=== PATIENT | female | born 1980 | race Caucasian/White ===

== ENCOUNTER 2019-01-24 04:30 | Inpatient (IN) | payer OTHER ==
[2019-01-24] VITALS (68 sets, daily range): BP systolic 74–126; BP diastolic 42–82
[~2019-01-24] VITALS: Ht 157.5 cm; Wt 82.1 kg
--- NOTE | 2019-01-24 04:43 | NUR ---
JOEY PARADA presented to unit via from ED, accompanied by SO, for INDUCTION. JOEY PARADA weighed, gowned, voided, and to bed. EFHM and TOCO applied, VS taken. JOEY PARADA oriented to bed controls, call light, TV, heat, and A/C controls.
[2019-01-24] MEDS ORDERED: OXYTOCIN/NORMAL SALINE 500 ML IV ONE (04:44)
[2019-01-24] MEDS ORDERED: D5 LR IV SOLUTION 1,000 ML IV ONE (04:44)
[2019-01-24] MEDS ORDERED: AMPICILLIN FOR IV USE 2,000 MG in WATER (STERILE) FOR INJECTION 14.8 ML IV SCH (04:53)
[2019-01-24] MEDS ORDERED: MINERAL OIL CONCENTRATE 99.9% 15 ML UDC TOP PRN (05:00)
[2019-01-24] MEDS: D5 LR IV SOLUTION 1,000 ML IV SCH ×2 (05:10→13:35)
[2019-01-24] MEDS: OXYTOCIN/NORMAL SALINE 500 ML IV SCH ×2 (05:15→15:53)
[2019-01-24] MEDS ORDERED: SUFENTA 0.6MCG/ML BUPIVA 0.125 100 ML ONE (05:22)
[2019-01-24 05:28] LABS: BASOPHILS % (AUTO) 0 % (0-10); EOSINOPHILS # (AUTO) 0.1 10^3/uL (0.0-0.3); EOSINOPHILS % (AUTO) 1 % (0-10); HEMATOCRIT 39 % (35-52); HEMOGLOBIN 12.6 G/DL (11.5-16.0); LYMPHOCYTES # (AUTO) 1.3 X 10^3 (1.0-4.0); LYMPHOCYTES % (AUTO) 13 % (12-44); MEAN CORPUSCULAR HEMOGLOBIN 28 PG (25-34); MEAN CORPUSCULAR HGB CONC 33 G/DL (32-36); MEAN CORPUSCULAR VOLUME 87 FL (80-99); MEAN PLATELET VOLUME 10.7 FL (7.4-10.4); MONOCYTES # (AUTO) 0.8 X 10^3 (0.0-1.0); MONOCYTES % (AUTO) 8 % (0-12); NEUTROPHILS # (AUTO) 7.7 X 10^3 (1.8-7.8); NEUTROPHILS % (AUTO) 78 % (42-75); PLATELET COUNT 188 10^3/uL (130-400); RED CELL DISTRIBUTION WIDTH 14.6 % (10.0-14.5); WHITE BLOOD COUNT 9.9 10^3/uL (4.3-11.0)
--- NOTE | 2019-01-24 05:34 | NUR ---
Anesthesia called and informed that pt of Dr. Pedroza's was here and in need of an epidural. Informed of current labs and that fluids are running. States that he will head in shortly.
[2019-01-24 05:42] LABS: BILIRUBIN,URINE NEGATIVE (NEGATIVE); CLARITY,URINE CLEAR; COLOR,URINE YELLOW; GLUCOSE, URINE (UA) NEGATIVE (NEGATIVE); KETONES,URINE NEGATIVE (NEGATIVE); LEUKOCYTE ESTERASE ,URINE NEGATIVE (NEGATIVE); NITRITE,URINE NEGATIVE (NEGATIVE); PH,URINE 7 (5-9); PROTEIN,URINE NEGATIVE (NEGATIVE); UROBILINOGEN,URINE NORMAL (NORMAL)
[2019-01-24] MEDS ORDERED: fentaNYL INJECTION 100 MCG/2 ML AMP ONE (05:48)
[2019-01-24] MEDS ORDERED: BUPIVACAINE 0.25% 30 ML (SENSORCAINE) VIAL ONE (05:48)
[2019-01-24 06:00] LABS: BACTERIA,URINE NEGATIVE /HPF
[2019-01-24] MEDS ORDERED: CATHETER FLUSH 10 ML SYR IV SCH ×2 (06:00→22:00)
[2019-01-24] MEDS ORDERED: LACTATED RINGERS 1,000 ML IV ONE ×2 (06:33→07:00)
[2019-01-24] MEDS ORDERED: EPIDURAL (SUFENTA 0.6MCG/ML BUPIVA 0.125%) 100 ML BAG EPI SCH (06:45)
[2019-01-24] MEDS ORDERED: NALOXONE 0.4 MG/ML 1 ML (NARCAN) VIAL IV PRN (06:45)
[2019-01-24] MEDS ORDERED: CATHETER FLUSH 10 ML SYR IV PRN (06:45)
--- NOTE | 2019-01-24 07:35 | History & Physical-OB/GYN ---
History of Present Illness History of Present Illness Reason for visit/HPI Pitocin Induction of Labor at 39+ weeks Date of Admission January 24, 2019 at 04:36 Date Seen by a Provider: January 24, 2019 Time Seen by a Provider: 07:05 I consulted on this patient on 01/24/19 07:30 Attending Physician Kenny Teixeira DO Admitting Physician Kenny Teixeira DO Consult Allergies and Home Medications Allergies Coded Allergies: No Known Drug Allergies (Unverified , 01/24/19) Patient Home Medication List Home Medication List Reviewed: Yes Past Ipfiqbt-Fvjcgb-Csiuvz Hx Patient Social History Marrital Status: Alcohol Use: Denies Use Recreational Drug Use: No Physical Abuse Screen: No Sexual Abuse: No Recent Foreign Travel: No Contact w/other who traveled: No Recent Hopitalizations: No Immunizations Up To Date Pediatric: Yes Seasonal Allergies Seasonal Allergies: No Surgeries No Respiratory No Cardiovascular No Neurological No Reproductive System Expected Date of Delivery: January 30, 2019 Last Menstrual Period: Apr 25, 2018 Genitourinary No Gastrointestinal No Musculoskeletal No Endocrine History of Endocrine Disorders: No HEENT History of HEENT Disorders: No Cancer No Psychosocial History of Psychiatric Problem: No Integumentary History of Skin or Integumenta: No Blood Transfusions History of Blood Disorders: No Adverse Reaction to a Blood Tr: No Family Medical History Family Hx: Cardiovascular disease 19 FATHER, Onset:50's - 60 Review of Systems Constitutional: see HPI Physical Exam Physical Exam Vital Signs Vital Signs Date Time Temp Pulse Resp B/P (MAP) Pulse Ox O2 Delivery O2 Flow Rate FiO2 01/24/19 06:54 77 20 90/61 (71) 100 Room Air 01/24/19 06:51 85 20 85/58 (67) 100 Room Air 01/24/19 06:48 75 20 87/59 (68) Room Air 01/24/19 06:45 80 20 81/52 (62) 100 Room Air 01/24/19 06:42 77 20 91/62 (72) 100 Room Air 01/24/19 06:39 78 20 94/62 (73) 100 Room Air 01/24/19 06:36 81 20 91/60 (70) 100 Room Air 01/24/19 06:33 76 20 89/57 (68) Room Air 01/24/19 06:30 79 20 93/60 (71) 99 Room Air 01/24/19 06:26 78 20 90/59 (69) Room Air 01/24/19 06:23 80 20 88/59 (69) 99 Room Air 01/24/19 06:20 74 20 92/62 (72) 100 Room Air 01/24/19 06:18 76 20 96/65 (75) Room Air 01/24/19 06:15 77 20 95/66 (76) 98 Room Air 01/24/19 06:12 71 20 89/53 (65) Room Air 01/24/19 06:09 68 20 74/42 (53) 100 Room Air 01/24/19 06:06 77 20 89/55 (66) 99 Room Air 01/24/19 06:03 79 20 119/76 (90) 99 Room Air 01/24/19 06:00 89 20 122/78 (93) 100 Room Air 01/24/19 05:30 71 100 Room Air 01/24/19 04:48 98.7 80 20 120/82 (95) Capillary Refill : Labs Laboratory Tests 01/24/19 05:10: White Blood Count 9.9, Red Blood Count 4.43, Hemoglobin 12.6, Hematocrit 39, Mean Corpuscular Volume 87, Mean Corpuscular Hemoglobin 28, Mean Corpuscular Hemoglobin Concent 33, Red Cell Distribution Width 14.6H, Platelet Count 188, Mean Platelet Volume 10.7H, Neutrophils (%) (Auto) 78H, Lymphocytes (%) (Auto) 13, Monocytes (%) (Auto) 8, Eosinophils (%) (Auto) 1, Basophils (%) (Auto) 0, Neutrophils # (Auto) 7.7, Lymphocytes # (Auto) 1.3, Monocytes # (Auto) 0.8, Eosinophils # (Auto) 0.1, Basophils # (Auto) 0.0 01/24/19 05:14: Urine Color YELLOW, Urine Clarity CLEAR, Urine pH 7, Urine Specific [place] 1.005L, Urine Protein NEGATIVE, Urine Glucose (UA) NEGATIVE, Urine Ketones NEGATIVE, Urine Nitrite NEGATIVE, Urine Bilirubin NEGATIVE, Urine Urobilinogen NORMAL, Urine Leukocyte Esterase NEGATIVE, Urine RBC (Auto) NEGATIVE, Urine RBC NONE, Urine WBC NONE, Urine Squamous Epithelial Cells NONE, Urine Crystals NONE , Urine Bacteria NEGATIVE, Urine Casts NONE, Urine Mucus NEGATIVE, Urine Culture Indicated NO General Appearance: No Apparent Distress, WD/WN Respiratory: Chest Non Tender, Lungs Clear, Normal Breath Sounds Cardiovascular: Regular Rate, Rhythm Abdominal: normal bowel sounds, non tender Labia: WNL Vagina: WNL Cervix: WNL Cervix OS: open (1.5 cm/60%/-3 Vertex/Intact) Uterus: Enlarged Extremity: Normal Range of Motion, No Calf Tenderness Assessment/Plan Assessment and Plan Assessment: Intrauterine at 39 weeks Plan: Pitocin Induction of Labor. Artificial Rupture of Membranes. Epidural Anesthesia. I expect a vaginal delivery. Admission Diagnosis Admission Status: Inpatient Order (span 2 midnights) Reason for Inpatient Admission: Pitocin Induction of Labor Clinical Quality Measures DVT/VTE Risk/Contraindication: Risk Factor Score Per Nursin RFS Level Per Nursing on Admit: 2=Moderate KENNY TEIXEIRA DO January 24, 2019 07:35
[2019-01-24] MEDS ORDERED: morphine INJ 10 MG/ML 1ML (SYR OR VIAL) IVP ONE (10:00)
[2019-01-24] MEDS ORDERED: MEPERIDINE (DEMEROL) INJ 50 MG/ML IVP ONE (10:00)
[2019-01-24] MEDS ORDERED: ONDANSETRON 4 MG/2 ML (SDV) Z0FRAN IVP PRN (10:00)
[2019-01-24] MEDS ORDERED: fentaNYL INJECTION 100 MCG/2 ML AMP IVP ONE (10:00)
--- NOTE | 2019-01-24 10:31 | NUR ---
called. update given on pitocin and previous SVE. will check cervix, then update
--- NOTE | 2019-01-24 10:38 | NUR ---
VAMSHI update to
[2019-01-24] MEDS ORDERED: AMPICILLIN FOR IV USE 1,000 MG/VIAL ONE (10:47)
[2019-01-24] MEDS ORDERED: WATER (STERILE) FOR INJECTION 10 ML ONE (10:47)
--- NOTE | 2019-01-24 12:02 | NUR ---
was called with SVE update.
--- NOTE | 2019-01-24 15:40 | OB Labor & Delivery Record ---
Vag Delivery Note Vag Delivery Note Date of Delivery: 01/24/19 Preoperative Diagnosis: Michelle Claire is a (39 /Para / ,Gestational Age (wks)39] Postoperative Diagnosis: Same Surgeon: ALLEGRA HODGSON [facility] [employer] Department Chair: [None] Anesthesia: [Epidural] Delivery Type: [Normal Spontaneous Vaginal Delivery] Findings: [] Viable [male] infant, apgars [], weight [] Lacerations: None Intact placenta with 3 vessel cord. No nuchal cord, body cord or shoulder dystocia Cytotec 800 mcg placed for hemorrhage prophylaxis Estimated Blood Loss: [300] ml Complications: Nuchal cord x 1, manually reduced Condition: Stable Description of Procedure: The patient is a 39 year old female who presented [for Pitocin Induction of Labor]. She was admitted and informed consent was obtained. Her labor course was remarkable. She progressed to complete dilatation and began to push. She was then set up for delivery. The infant's head was delivered atraumatically in the [VENKATESH] position. The shoulders and remainder of the infant' s body were then delivered without difficulty. Upon delivery, the head was held below the level of the perineum and the mouth and nares were bulb suctioned. The cord was doubly clamped and cut and the was handed off to the pediatric staff. An intact placenta with 3-vessel cord delivered via Raúl and there was found to be minimal bleeding.~ Vigorous fundal massage was performed and the fundus was found to be firm. IV oxytocin was given. Examination of the vagina and perineum revealed no laceration.. The sponge, instrument and needle counts were correct. Mom and baby were both in stable condition in the labor suite. Vitals - Labs Vital Signs - I&O Vital Signs Date Time Temp Pulse Resp B/P (MAP) Pulse Ox O2 Delivery O2 Flow Rate FiO2 01/24/19 14:15 75 18 114/69 (84) 100 Room Air 01/24/19 14:00 76 18 113/66 (82) 100 Room Air 01/24/19 13:45 78 18 122/71 (88) 100 Room Air 01/24/19 13:30 82 18 98/59 (72) 100 Room Air 01/24/19 13:15 78 18 108/61 (77) 99 Room Air 01/24/19 13:00 73 18 101/67 (78) 100 Room Air 01/24/19 12:45 74 18 116/70 (85) 100 Room Air 01/24/19 12:30 75 18 110/65 (80) 100 Room Air 01/24/19 12:15 79 18 100 Room Air 01/24/19 12:00 74 18 112/56 (74) 98 Room Air 01/24/19 11:45 72 18 97/58 (71) 100 Room Air 01/24/19 11:30 67 18 98/57 (71) 100 Room Air 01/24/19 11:15 71 18 101/62 (75) 100 Room Air 01/24/19 11:00 68 18 96/58 (71) 100 Room Air 01/24/19 10:45 71 18 103/56 (72) 100 Room Air 01/24/19 10:35 96.5 01/24/19 10:30 65 18 90/55 (67) 100 Room Air 01/24/19 10:15 65 18 90/55 (67) 100 Room Air 01/24/19 10:00 68 18 88/57 (67) 100 Room Air 01/24/19 09:45 68 18 89/54 (66) 100 Room Air 01/24/19 09:30 80 18 84/60 (68) 99 Room Air 01/24/19 09:15 70 18 91/64 (73) 100 Room Air 01/24/19 09:00 77 18 87/59 (68) 99 Room Air 01/24/19 08:45 85 18 96/55 (69) 99 Room Air 01/24/19 08:30 78 18 94/57 (69) 98 Room Air 01/24/19 08:15 69 18 99/57 (71) 98 Room Air 01/24/19 08:00 69 18 99/57 (71) 98 Room Air 01/24/19 07:45 75 18 99/61 (74) 100 Room Air 01/24/19 07:30 97.4 77 18 99/64 (76) 99 Room Air 01/24/19 07:25 75 18 97/61 (73) 100 Room Air 01/24/19 07:20 76 18 95/60 (72) 100 Room Air 01/24/19 07:15 76 18 99/64 (76) 100 Room Air 01/24/19 07:10 96 18 96/55 (69) 100 Room Air 01/24/19 07:05 82 18 103/59 (74) 99 Room Air 01/24/19 07:02 79 18 91/63 (72) Room Air 01/24/19 06:54 77 20 90/61 (71) 100 Room Air 01/24/19 06:51 85 20 85/58 (67) 100 Room Air 01/24/19 06:48 75 20 87/59 (68) Room Air 01/24/19 06:45 80 20 81/52 (62) 100 Room Air 01/24/19 06:42 77 20 91/62 (72) 100 Room Air 01/24/19 06:39 78 20 94/62 (73) 100 Room Air 01/24/19 06:36 81 20 91/60 (70) 100 Room Air 01/24/19 06:33 76 20 89/57 (68) Room Air 01/24/19 06:30 79 20 93/60 (71) 99 Room Air 01/24/19 06:26 78 20 90/59 (69) Room Air 01/24/19 06:23 80 20 88/59 (69) 99 Room Air 01/24/19 06:20 74 20 92/62 (72) 100 Room Air 01/24/19 06:18 76 20 96/65 (75) Room Air 01/24/19 06:15 77 20 95/66 (76) 98 Room Air 01/24/19 06:12 71 20 89/53 (65) Room Air 01/24/19 06:09 68 20 74/42 (53) 100 Room Air 01/24/19 06:06 77 20 89/55 (66) 99 Room Air 01/24/19 06:03 79 20 119/76 (90) 99 Room Air 01/24/19 06:00 89 20 122/78 (93) 100 Room Air 01/24/19 05:30 71 100 Room Air 01/24/19 04:48 98.7 80 20 120/82 (95) Labs Laboratory Tests 01/24/19 05:10: White Blood Count 9.9, Red Blood Count 4.43, Hemoglobin 12.6, Hematocrit 39, Mean Corpuscular Volume 87, Mean Corpuscular Hemoglobin 28, Mean Corpuscular Hemoglobin Concent 33, Red Cell Distribution Width 14.6H, Platelet Count 188, Mean Platelet Volume 10.7H, Neutrophils (%) (Auto) 78H, Lymphocytes (%) (Auto) 13, Monocytes (%) (Auto) 8, Eosinophils (%) (Auto) 1, Basophils (%) (Auto) 0, Neutrophils # (Auto) 7.7, Lymphocytes # (Auto) 1.3, Monocytes # (Auto) 0.8, Eosinophils # (Auto) 0.1, Basophils # (Auto) 0.0 01/24/19 05:14: Urine Color YELLOW, Urine Clarity CLEAR, Urine pH 7, Urine Specific [place] 1.005L, Urine Protein NEGATIVE, Urine Glucose (UA) NEGATIVE, Urine Ketones NEGATIVE, Urine Nitrite NEGATIVE, Urine Bilirubin NEGATIVE, Urine Urobilinogen NORMAL, Urine Leukocyte Esterase NEGATIVE, Urine RBC (Auto) NEGATIVE, Urine RBC NONE, Urine WBC NONE, Urine Squamous Epithelial Cells NONE, Urine Crystals NONE , Urine Bacteria NEGATIVE, Urine Casts NONE, Urine Mucus NEGATIVE, Urine Culture Indicated NO SEALSALLEGRA DO January 24, 2019 15:40
[2019-01-24] MEDS ORDERED: WITCH HAZEL(TUCKS) 40 EA JAR TOP PRN (15:45)
[2019-01-24] MEDS ORDERED: TETANUS,DIPTH,PERTUSS P/F (BOOSTRIX) 0.5 ML VIAL IM ONE (15:45)
[2019-01-24] MEDS ORDERED: BENZOCAINE/MENTHOL (DERMOPLAST) 56 ML CAN TP PRN (15:45)
[2019-01-24] MEDS ORDERED: MEASLES,MUMPS,RUBELLA 1 EA INJ SQ ONE (15:45)
[2019-01-24] MEDS: IBUPROFEN 800 MG (MOTRIN) TAB PO SCH (16:46)
--- NOTE | 2019-01-24 18:47 | NUR ---
eating regular diet. mother and @ side. no c/o's voiced.
--- NOTE | 2019-01-24 19:15 | NUR ---
Report given to next shift.
--- NOTE | 2019-01-24 19:38 | NUR ---
FFu/1. lt rubra noted. no clots expressed. andrew-care offered. v-pad in place. pt transferred to room 312 via w/c with this RN @ side. pt familiarized with room. call lights within reach.
[2019-01-24] MEDS: DOCUSATE SODIUM 100 MG (COLACE) CAP PO SCH ×2 (23:00→23:01)
[2019-01-25] MEDS: IBUPROFEN 800 MG (MOTRIN) TAB PO SCH ×2 (01:46→09:21)
[2019-01-25 04:45] VITALS: BP 85/59
--- NOTE | 2019-01-25 06:13 | Discharge Summary ---
Diagnosis/Chief Complaint Date of Admission January 24, 2019 at 04:36 Date of Discharge January 25, 2019 Discharge Date: January 25, 2019 Discharge Time: 06:15 Admission Diagnosis Admission Diagnosis Intrauterine at 39 weeks Discharge Diagnosis Intrauterine at 39 weeks Reason Hospital Visit Pitocin Induction of Labor at 39+ weeks Discharge Summary Hospital Course Was the Problem List Reviewed?: Yes Hospital Course Ms. Claire was admitted for Pitocin Induction. She received an Epidural for antepartum pain management. I artificially ruptured her membranes. She progressed to complete, then, delivered a healthy viable male after a short course of pushing. No complications. The remainder of her hospitalization was unremarkable. Her vital signs remained stable. She will be discharged to home with instructions, prescriptions and a follow up appointment. Labs Laboratory Tests 01/24/19 05:10: Red Cell Distribution Width 14.6H, Mean Platelet Volume 10.7H, Neutrophils (%) ( Auto) 78H 01/24/19 05:14: Urine Specific [place] 1.005L Procedures None. Discharge Physical Examination Allergies: Coded Allergies: No Known Drug Allergies (Unverified , 01/24/19) Vitals & I&Os Vital Signs Date Time Temp Pulse Resp B/P (MAP) Pulse Ox O2 Delivery O2 Flow Rate FiO2 01/25/19 04:45 96.6 64 18 85/59 (68) 97 Room Air Discharge Home Medications Reviewed and agree with Discharge Medication list on patient's Discharge Instruction sheet Instructions to Patient/Family Please see electronic discharge instructions given to patient. Clinical Quality Measures DVT/VTE Risk/Contraindication: Risk Factor Score Per Nursin RFS Level Per Nursing on Admit: 2=Moderate ALLEGRA HODGSON DO January 25, 2019 06:13
[2019-01-25] MEDS ORDERED: IBUP-1780 PO (06:17)
[2019-01-25] MEDS ORDERED: DOCU100C37 PO (06:17)
[2019-01-25] MEDS ORDERED: OXC5T PO (06:17)
[2019-01-25 06:57] LABS: BASOPHILS % (AUTO) 0 % (0-10); EOSINOPHILS # (AUTO) 0.1 10^3/uL (0.0-0.3); EOSINOPHILS % (AUTO) 1 % (0-10); HEMATOCRIT 37 % (35-52); HEMOGLOBIN 12.1 G/DL (11.5-16.0); LYMPHOCYTES # (AUTO) 1.3 X 10^3 (1.0-4.0); LYMPHOCYTES % (AUTO) 10 % (12-44); MEAN CORPUSCULAR HEMOGLOBIN 29 PG (25-34); MEAN CORPUSCULAR HGB CONC 33 G/DL (32-36); MEAN CORPUSCULAR VOLUME 88 FL (80-99); MONOCYTES # (AUTO) 1.1 X 10^3 (0.0-1.0); MONOCYTES % (AUTO) 8 % (0-12); NEUTROPHILS # (AUTO) 11.4 X 10^3 (1.8-7.8); NEUTROPHILS % (AUTO) 82 % (42-75); PLATELET COUNT 183 10^3/uL (130-400); RED CELL DISTRIBUTION WIDTH 14.3 % (10.0-14.5); WHITE BLOOD COUNT 13.9 10^3/uL (4.3-11.0)
--- NOTE | 2019-01-25 07:04 | Anesthesia-Regional Post-Op ---
Regional Patient Condition Mental Status: Alert, Oriented x3 Circulation: Same as Pre-Op Headache: Absent Sensation: Full Recovery Motor Block: Absent Post Op Complications Complications None Follow Up Care/Instructions Patient Instructions None needed. Anesthesia/Patient Condition Patient is doing well, no complaints, stable vital signs, no apparent adverse anesthesia problems. No complications reported per nursing. [place] [facility] [place] GAUDENCIO Lobo CRNA January 25, 2019 07:04
[2019-01-25] MEDS: DOCUSATE SODIUM 100 MG (COLACE) CAP PO SCH (09:21)
--- NOTE | 2019-01-25 09:21 | NUR ---
scheduled Motrin and Colace given, see eMar for further. infant currently breast feeding. parents pleased with 's efforts.
[2019-01-25 09:55] VITALS: BP 102/67
--- NOTE | 2019-01-25 09:55 | NUR ---
initial shift assessment completed, see interventions for further. POC reviewed r/t boarder mom status.
--- NOTE | 2019-01-25 10:00 | NUR ---
up to shower. assisting.
--- NOTE | 2019-01-25 10:03 | NUR ---
Rx's given to pt's .
[2019-01-25 14:09] VITALS: BP 117/63
--- NOTE | 2019-01-25 14:20 | NUR ---
dismissal instructions given, verbalizes understanding. reviewed follow up appointment and Rx's. rooming in parent info given. signature page signed, placed on chart. Addendum: 01/25/19 at 1425 by JENNIFER VILLEGAS RN dismissed to rooming in parent until infant dismissed from hospital.
== END 2019-01-25 14:20 | disposition home or self-care (01) | DRG 807 ==
LOC: LDRP 04:36
PROVIDERS: ADMIT Obstetrics & Gynecology; ATTEND Obstetrics & Gynecology
PROC: 10E0XZZ Delivery of Products of Conception, External Approach (ICD-10-PCS; principal; 2019-01-24)
PROC: 3E033VJ Introduction of Other Hormone into Peripheral Vein, Percutaneous Approach (ICD-10-PCS; 2019-01-24)
DX: O69.81X0 Labor and delivery complicated by cord around neck, without compression, not applicable or unspecified (principal); Z3A.39 39 weeks gestation of pregnancy; Z37.0 Single live birth
CPT/HCPCS: 36415; 81000; 85025; 86850; 86900; 86901

== ENCOUNTER → 2019-09-13 | Outpatient (CLI) | payer SELFPAY ==
[~2019-09-13] MED LIST: DOCU100C37 PO; IBUP-1780 PO; OXC5T PO
--- NOTE | 2019-09-13 13:40 | Diagnostic Imaging Report ---
INDICATION: Right hip and SI joint pain. TIME OF EXAM: 1:26 PM Oblique views of the sacroiliac joints as well as AP views were obtained. No sacroiliitis is identified. There are no osseous erosive changes or evidence of ankylosis. IMPRESSION: Unremarkable SI joints. Dictated by: Dictated on workstation # [id number]
--- NOTE | 2019-09-13 13:45 | Diagnostic Imaging Report ---
INDICATION: Bilateral knee pain. TIME OF EXAM: 1:29 PM FINDINGS: AP and lateral views were obtained of bilateral knees. Joint spaces are well-maintained bilaterally. The articular surfaces are smooth. No fracture, dislocation or effusion is seen. IMPRESSION: No acute bony abnormality is detected. Dictated by: Dictated on workstation # [id number]
== END ==
LOC: RAD FS 13:17
PROVIDERS: ATTEND Emergency Medicine
DX: M46.1 Sacroiliitis, not elsewhere classified (principal); M25.561 Pain in right knee; M25.562 Pain in left knee
CPT/HCPCS: 72202